=== PATIENT | female | born 1945 ===

== ENCOUNTER 2021-09-28 09:45 | Inpatient (IN) | payer OTHER ==
[~2021-09-28] VITALS: Ht 157.5 cm; Wt 70.8 kg
[2021-09-28] MEDS ORDERED: SYNTHROID150 MCG PO (12:42)
[2021-09-28] MEDS ORDERED: HUMUL (12:43)
[2021-09-28] MEDS ORDERED: SIMVASTATIN5 MG PO (12:44)
[2021-09-28] MEDS ORDERED: GABAPENTIN800 M1 PO (12:44)
== END 2021-09-30 12:28 | disposition home or self-care (01) | DRG 735 ==
LOC: O/R 09-29 05:53 → SURH 09-29 09:45 → OB/GYN 09-29 19:31
PROVIDERS: ADMIT Obstetrics & Gynecology Gynecologic Oncology; ATTEND Obstetrics & Gynecology Gynecologic Oncology
PROC: 0UTMXZZ Resection of Vulva, External Approach (ICD-10-PCS; 2021-09-29)
PROC: 07TJ0ZZ Resection of Left Inguinal Lymphatic, Open Approach (ICD-10-PCS; principal; 2021-09-29 15:45)
DX: D07.1 Carcinoma in situ of vulva (principal); Z20.822 Contact with and (suspected) exposure to COVID-19

== ENCOUNTER 2022-09-21 08:21 | Day surgery (SDC) | payer OTHER ==
[~2022-09-21] VITALS: Ht 157.5 cm; Wt 68.9 kg
[~2022-09-21 08:21] MED LIST: ARICEPT10 MG PO; CHILDREN'S ASPI81 MG PO; CILOSTAZOL50 MG PO; FEOSOL325 MG PO; GABAPENTIN800 M1 PO; HUMUL; LISINOP PO; PANTOPRAZOLE SO40 MG PO; SIMVASTATIN5 MG PO; SYNTHROID125 MCG PO; SYNTHROID150 MCG PO
[2022-09-21] MEDS ORDERED: ZESTRIL20 MG (10:51)
== END 2022-09-21 14:45 | disposition home or self-care (01) ==
LOC: CIR.AMB 08:21 → O/R 08:21 → SURG 08:21 → EDSTATUS 10:00 → CIR.AMB 14:45 → O/R 14:45
PROVIDERS: ATTEND Obstetrics & Gynecology Gynecologic Oncology
DX: D07.1 Carcinoma in situ of vulva (principal); E11.9 Type 2 diabetes mellitus without complications; I10 Essential (primary) hypertension; I95.9 Hypotension, unspecified; Z79.4 Long term (current) use of insulin; Z20.822 Contact with and (suspected) exposure to COVID-19